=== PATIENT | female | born 1955 | race Caucasian/White ===

== ENCOUNTER 2024-05-13 16:01 | Emergency (ER) | payer SELFPAY ==
[~2024-05-13] VITALS: Ht 157.5 cm; Wt 61.0 kg
[2024-05-13 16:17] VITALS: BP 194/73; PULSE 100; RESP 20; TEMP 94.8; O2SAT 100
== END 2024-05-13 17:34 | disposition left against medical advice (07) ==
LOC: ER 16:01
DX: R10.9 Unspecified abdominal pain (principal); Z53.21 Procedure and treatment not carried out due to patient leaving prior to being seen by health care provider